=== PATIENT | male | born 1975 | race Two or more races ===

== ENCOUNTER 2017-04-06 08:56 | Emergency (ER) | payer SELFPAY ==
[2017-04-06] MEDS: cloNIDine HCL 0.1 MG TABLET PO ×2 (10:41)
== END 2017-04-06 11:39 | disposition home or self-care (01) ==
LOC: ER 08:56
DX: S93.402A Sprain of unspecified ligament of left ankle, initial encounter (principal); I10 Essential (primary) hypertension; W19.XXXA Unspecified fall, initial encounter; Y93.89 Activity, other specified; Y92.89 Other specified places as the place of occurrence of the external cause; Y99.8 Other external cause status
CPT/HCPCS: 73610; 99284

== ENCOUNTER 2018-07-21 18:14 | Emergency (ER) | payer SELFPAY ==
[~2018-07-21] VITALS: Ht 162.6 cm; Wt 65.8 kg
[2018-07-21] MEDS ORDERED: cloNIDine HCL 0.1 MG TABLET PO ONE (18:45)
[2018-07-21] MEDS ORDERED: TETRACAINE 0.5% OPHTH SOLUTION 4ML BOTTLE. OU ONE (18:45)
[2018-07-21 19:09] LABS: BASO # 0.1 x10^3/uL (0.0-0.2); BASO % 1 % (0-3); EOS # 0.1 x10^3/uL (0.0-0.7); EOS % 1 % (0-3); HEMATOCRIT 44.2 % (39.0-53.0); HEMOGLOBIN 15.1 g/dL (13.0-17.5); LYMPH # 1.4 x10^3/uL (1.0-4.8); LYMPH % 18 % (24-48); MEAN CORPUSCULAR HEMOGLOBIN 32 pg (25-35); MEAN CORPUSCULAR HGB CONC 34 g/dL (31-37); MEAN CORPUSCULAR VOLUME 93 fL (79-100); MONO # 0.6 x10^3/uL (0.0-1.1); MONO % 8 % (0-9); NEUT # 5.4 x10^3uL (1.8-7.7); NEUT % 72 % (31-73); PLATELET COUNT 107 x10^3/uL (140-400); RED BLOOD COUNT 4.73 x10^6/uL (4.30-5.70); RED CELL DISTRIBUTION WIDTH 13.5 % (11.5-14.5); WHITE BLOOD COUNT 7.4 x10^3/uL (4.0-11.0)
[2018-07-21] MEDS ORDERED: FLUORESCEIN OPHTH TEST STRIP. OD ONE (19:15)
[2018-07-21 19:38] LABS: ALBUMIN 3.3 g/dL (3.4-5.0); ALBUMIN/GLOBULIN RATIO 0.8 (1.0-1.7); C-REACTIVE PROTEIN 5.6 mg/L (0-3.3); CALCIUM 9.7 mg/dL (8.5-10.1); CREATININE 1.2 mg/dL (0.7-1.3); GFR 66.1; POTASSIUM 4.1 mmol/L (3.5-5.1); TOTAL BILIRUBIN 1.4 mg/dL (0.2-1.0); TOTAL PROTEIN 7.2 g/dL (6.4-8.2)
[2018-07-21] MEDS ORDERED: IV NORMAL SALINE 1000ML BAG 1,000 ML IV ONE ×2 (20:00)
[2018-07-21] MEDS ORDERED: INSULIN REGULAR 100 UNIT/ML 3ML VIAL. SQ ONE (20:00)
[2018-07-21 22:35] LABS: BILIRUBIN,URINE NEGATIVE (NEG); CLARITY,URINE CLEAR; COLOR,URINE YELLOW; NITRITE,URINE NEGATIVE (NEG); PH,URINE 6.5; PROTEIN,URINE NEGATIVE (NEG-TRACE)
[2018-07-21 22:51] LABS: RBC,URINE 0 /HPF (0-2)
[2018-07-21 22:52] LABS: BACTERIA,URINE FEW /HPF (0-FEW); SQUAMOUS EPITHELIAL CELL,UR FEW /LPF; WBC,URINE >40 /HPF (0-4)
--- NOTE | 2018-07-21 23:06 | PHYS DOC ---
Past Medical History Past Medical History: Diabetes-Type II, Hypertension Past Surgical History: No Surgical History Alcohol Use: None Drug Use: None Adult General Chief Complaint Chief Complaint: EYE PROBLEMS HPI HPI Patient is a 42 year old male complaining of right eye pain, vision loss upon waking this afternoon. Denies trauma or injury to right. No foreign body sensation. Patient does report tearing and has been rubbing his eye. Patient does not wear contact lenses or corrective lenses Patient also reports ge neralized malaise, fatigue and increased thirst. Patient is a insulin-dependent diabetic. No fever chills, nausea vomiting or sweats. No chest pain, shortness of breath. Patient is hypertensive. States he has been off his medications for the past 3 days. No other acute symptoms or complaints. [] Review of Systems Review of Systems Review symptoms as per history of present illness. All other review symptoms are negative. All other systems were reviewed and found to be within normal limits, except as documented in this note. Current Medications Current Medications Current Medications Medications (Trade) Dose Ordered Sig/Leonel Start Time Stop Time Status Last Admin Dose Admin Clonidine HCl (Catapres) 0.2 mg 1X ONCE 07/21/18 18:45 07/21/18 18:46 DC 07/21/18 18:59 0.2 MG Fluorescein Sodium (Ful-Yvrose) 1 strip 1X ONCE 07/21/18 19:15 07/21/18 19:16 DC 07/21/18 19:58 1 STRIP Insulin Human Regular (HumuLIN R VIAL) 10 unit 1X ONCE 07/21/18 20:00 07/21/18 20:01 DC 07/21/18 20:26 10 UNIT Sodium Chloride 1,000 ml @ 1,000 mls/hr 1X ONCE 07/21/18 20:00 07/21/18 20:59 DC 07/21/18 19:59 1,000 MLS/HR Tetracaine HCl (Tetracaine) 2 drop 1X ONCE 07/21/18 18:45 07/21/18 18:46 DC 07/21/18 19:00 2 DROP Allergies Allergies Allergies Coded Allergies Type Severity Reaction Last Updated Verified No Known Drug Allergies 04/06/17 No Physical Exam Physical Exam Constitutional: Well developed, well nourished, no acute distress, non-toxic appearance. [] HENT: Normocephalic, atraumatic, bilateral external ears normal, oropharynx moist, no oral exudates, nose normal. [] Eyes: PERRLA, EOMI, right eye, conjunctiva injected, corneal ulcer/abrasion over lower half of pupil, limited funduscopic exam. [] Neck: Normal range of motion, no tenderness. [] Cardiovascular:Heart rate regular rhythm, no murmur [] Lungs & Thorax: Bilateral breath sounds clear to auscultation [] Abdomen: Bowel sounds normal, soft, no tenderness, no masses, no pulsatile masses. [] Skin: Warm, dry, no erythema. [] Back: No tenderness. [] Extremities: No tenderness. [] Neurologic: Alert and oriented X 3, normal motor function, normal sensory function, no focal deficits noted. [] Psychologic: Affect normal, judgement normal, mood normal. [] Current Patient Data Vital Signs Vital Signs Date Time Temp Pulse Resp B/P (MAP) Pulse Ox O2 Delivery O2 Flow Rate FiO2 07/21/18 18:59 105 166/111 07/21/18 18:26 98.5 20 97 Room Air 98.5 Lab Values Laboratory Tests Test 07/21/18 18:55 White Blood Count 7.4 x10^3/uL (4.0-11.0) Red Blood Count 4.73 x10^6/uL (4.30-5.70) Hemoglobin 15.1 g/dL (13.0-17.5) Hematocrit 44.2 % (39.0-53.0) Mean Corpuscular Volume 93 fL (79-100) Mean Corpuscular Hemoglobin 32 pg (25-35) Mean Corpuscular Hemoglobin Concent 34 g/dL (31-37) Red Cell Distribution Width 13.5 % (11.5-14.5) Platelet Count 107 x10^3/uL (140-400) L Neutrophils (%) (Auto) 72 % (31-73) Lymphocytes (%) (Auto) 18 % (24-48) L Monocytes (%) (Auto) 8 % (0-9) Eosinophils (%) (Auto) 1 % (0-3) Basophils (%) (Auto) 1 % (0-3) Neutrophils # (Auto) 5.4 x10^3uL (1.8-7.7) Lymphocytes # (Auto) 1.4 x10^3/uL (1.0-4.8) Monocytes # (Auto) 0.6 x10^3/uL (0.0-1.1) Eosinophils # (Auto) 0.1 x10^3/uL (0.0-0.7) Basophils # (Auto) 0.1 x10^3/uL (0.0-0.2) Erythrocyte Sedimentation Rate 17 (0-15) H Sodium Level 134 mmol/L (136-145) L Potassium Level 4.1 mmol/L (3.5-5.1) Chloride Level 96 mmol/L (98-107) L Carbon Dioxide Level 27 mmol/L (21-32) Anion Gap 11 (6-14) Blood Urea Nitrogen 12 mg/dL (8-26) Creatinine 1.2 mg/dL (0.7-1.3) Estimated GFR (Cockcroft-Gault) 66.1 BUN/Creatinine Ratio 10 (6-20) Glucose Level 631 mg/dL (70-99) *H Calcium Level 9.7 mg/dL (8.5-10.1) Total Bilirubin 1.4 mg/dL (0.2-1.0) H Aspartate Amino Transferase (AST) 49 U/L (15-37) H Alanine Aminotransferase (ALT) 120 U/L (16-63) H Alkaline Phosphatase 281 U/L (46-116) H C-Reactive Protein, Quantitative 5.6 mg/L (0-3.3) H Total Protein 7.2 g/dL (6.4-8.2) Albumin 3.3 g/dL (3.4-5.0) L Albumin/Globulin Ratio 0.8 (1.0-1.7) L Acetone Level Neg (NEG) Laboratory Tests 07/21/18 18:55 Laboratory Tests 07/21/18 18:55 EKG EKG [] Radiology/Procedures Radiology/Procedures [] Course & Med Decision Making Course & Med Decision Making Pertinent Labs and Imaging studies reviewed. (See chart for details) [Case reviewed with Dr. Weller transition mgr for ophthalmology. Recommends transfer to significantly capable of culturing eye ulcer pathogens. accepted to [facility] emergency department for ophthalmology sent. Blood sugar are to departure.] Dragon Disclaimer Dragon Disclaimer This electronic medical record was generated, in whole or in part, using a voice recognition dictation system. Departure Departure Impression: Primary Impression: Vision loss, right eye Additional Impressions: Hyperglycemia Hypertension Disposition: 02 TRANSFER [facility] Condition: GOOD Referrals: KIMBERLY BAEZ MD (PCP) Problem Qualifiers LISA WARD DO Jul 21, 2018 23:06
--- NOTE | 2018-07-21 23:31 | RAD ---
CHEST AP ONLY Clinical Indication: Shortness of breath x1 day. Comparison: None. Findings: The cardiomediastinal silhouette is normal. Lungs are clear. There is no pneumothorax. No pleural effusion is appreciated. No acute bone abnormality. IMPRESSION: No acute cardiopulmonary process. Electronically signed by: Cem Maurer MD (07/21/2018 11:28 PM) [facility]
[2018-07-22 01:10] VITALS: BP 155/78
== END 2018-07-22 01:20 | disposition short-term general hospital (02) ==
LOC: ER 18:14
DX: H54.61 Unqualified visual loss, right eye, normal vision left eye (principal); E11.65 Type 2 diabetes mellitus with hyperglycemia; I10 Essential (primary) hypertension
CPT/HCPCS: 36415; 71045; 80053; 81001; 82010; 85025; 85651; 86140; 87040; 87086; 96360; 96372; 99285; J1815; J7030

== ENCOUNTER → 2021-04-01 | Outpatient (CLI) | payer SELFPAY ==
[2021-03-20 23:37] VITALS: BP 123/78
[~2021-04-01] MED LIST: AMLO-187 PO; ASPI-886 PO; ATOR10TA60 PO; FURO40TA4 PO; GLIM4TAB8 PO; LISI-130 PO; LISI5TAB15 PO; METF500T16 PO; METO-239 PO; METO2.5T PO; POTA20TA4 PO; SPIR25TA PO; TAMS0.4C97 PO
--- NOTE | 2021-04-01 12:36 | KCIC ---
EXAM: Bilateral knees, 3 views. HISTORY: Pain. COMPARISON: None. FINDINGS: 3 views of both knees are obtained. There is lucency traversing the inferior aspect of the left anterior tibial tubercle. The absence of overlying swelling favors a chronic etiology. The possi bility of an avulsion fracture is not excluded. There is no joint effusion. There is bone demineraliz ation. There are vascular calcifications. IMPRESSION: 1. Possible avulsion fracture involving the left anterior tibial tubercle. Correlate for pain in this location. 2. Bone demineralization. Electronically signed by: Mary García MD (04/01/2021 12:34 PM) [id number]
== END ==
LOC: KCIC 11:20
PROVIDERS: ATTEND Family Medicine
DX: M81.8 Other osteoporosis without current pathological fracture (principal); M25.861 Other specified joint disorders, right knee; M25.862 Other specified joint disorders, left knee; M25.562 Pain in left knee; M25.561 Pain in right knee
CPT/HCPCS: 73562-50